=== PATIENT | male | born 1985 | race Caucasian/White ===

== ENCOUNTER 2017-09-02 22:00 | Emergency (ER) | payer SELFPAY ==
--- OUTSIDE RECORDS SUMMARY | 2017-09-02 22:28 | XMS REPORT ---
:1985 External Reference #:[id number] Author Organization [facility] Address [address] [address] Phone [phone] Care Team Providers Name Role Phone Celine Ha Primary Care Physician Unavailable Payers Type Date Identification Numbers Payment Provider Subscriber Commercial Effective: Policy Number: [facility] Kennedy Danielle 2015 [id number] [place] Group Name: [id number] [address] PayID: [id number] [place] [address] Workers Onset: 2016 Policy Number: State Insurance Christopher Compensation [id number] [facility] Group Number: [id number] [address] [address] Group Name: [id number] [place] [address] PayID: [id number] Commercial Expires: 2013 Policy Number: [place]/JUSTICE [facility] Kennedy Danielle [id number] Gen/Prefcar Group Number: [id number] OA PLUS [address] Group Name: [id number] [place] [address] PayID: [id number] Commercial Effective: Policy Number: [facility] Kennedy Lolis 2011 [id number] Trad/MX Expires: 2012 Group Number: BLUE EPO [address] [address] Group Name: [address] [place] [address] PayID: [id number] Commercial Expires: 2010 Policy Number: [facility] Kennedy Danielle [id number] Group Number: [place] [address] Group Name: [place] [address] PayID: [id number] Medigap Part B Expires: Policy Number: [facility] [place] 2009 [id number] [place] Group Number: [facility] [address] Group Name: [place] [address] PayID: [id number] Medigap Part B Expires: 2007 Policy Number: [employer] (Old) Stephan Danielle [id number] Group Name: [id number] [address] PayID: [id number] [place] [address] Workers Expires: Policy Number: Robert Benavides Compensation [id number] [address] Problems Date Description Provider Status Onset: 09/19/2011 Chest pain Celine Ha, PB Active Onset: 09/19/2011 Obesity Andre Rivers MD Active Family History Date Family Member(s) Problem(s) Comments Father Hypertension Mother Asthma Mother Hypothyroidism Social History Type Date Description Comments Marital Status Lives With Spouse Lives With Sons 2, as 06/27 ages 3 and 18 months Cigarette Use Former Cigarette Smoker 1-5 ONLY SMOKE 2 YRS Cigarettes Daily ETOH Use Drinks Alcoholic Beverages Rarely Smoking Patient is a former smoker Allergies, Adverse Reactions, Alerts Date Description Reaction Status Severity Comments 09/19/2011 NKDA active Medications Medication Date Status Form Strength Qnty SIG Indications Ordering Provider Cpap Active 1units cpap 9 cm Celine Dye h2o mask, [place], tubing and ANP filters dx: lashon g47.33 No OTC Meds Active Kelly Le 012 [place], [employer] Meloxicam Hx Tablets 15mg 30tabs one tab Kraig 017 - daily. take Eden, with food [employer] 017 Aldara Hx Cream 5% 1units apply to Celine Keating - affected [place], area on ANP 016 scotum overnight three times weekly for maximum of 16 weeks Tessalon Hx Capsules 200mg 21caps 1 po q8 prn Celine Keating - [place], ANP 013 Azithromycin Hx Tablets 250mg 6tabs 2 today, Celine Keating - then 1 qd x [place], 4 days ANP 013 Vital Signs Date Vital Result Comment 08/06/2017 BP Systolic 132 mmHg BP Diastolic 78 mmHg Heart Rate 88 /min Height 72.50 inches 6'0.50" Weight 443.00 lb O2 % BldC Oximetry 96 % RM Air BMI (Body Mass Index) 59.2 kg/m2 06/10/2017 BP Systolic 136 mmHg BP Diastolic 74 mmHg Heart Rate 88 /min Height 72.50 inches 6'0.50" Weight 443.00 lb O2 % BldC Oximetry 97 % BMI (Body Mass Index) 59.2 kg/m2 03/13/2017 BP Systolic 110 mmHg BP Diastolic 64 mmHg Heart Rate 92 /min Height 72.50 inches 6'0.50" Weight 450.00 lb O2 % BldC Oximetry 98 % BMI (Body Mass Index) 60.2 kg/m2 12/17/2016 BP Systolic 138 mmHg BP Diastolic 88 mmHg Heart Rate 95 /min Height 72.50 inches 6'0.50" Weight 442.00 lb O2 % BldC Oximetry 98 % RM Air BMI (Body Mass Index) 59.1 kg/m2 03/27/2016 BP Systolic 138 mmHg BP Diastolic 86 mmHg Heart Rate 102 /min Height 72.50 inches 6'0.50" Weight 450.50 lb O2 % BldC Oximetry 94 % RM Air BMI (Body Mass Index) 60.3 kg/m2 02/19/2016 BP Systolic 130 mmHg BP Diastolic 80 mmHg Heart Rate 82 /min Height 72.50 inches 6'0.50" Weight 444.38 lb O2 % BldC Oximetry 96 % RM Air BMI (Body Mass Index) 59.4 kg/m2 11/22/2015 BP Systolic 114 mmHg BP Diastolic 78 mmHg Heart Rate 98 /min Height 72.50 inches 6'0.50" Weight 444.00 lb O2 % BldC Oximetry 99 % BMI (Body Mass Index) 59.4 kg/m2 09/28/2015 BP Systolic 146 mmHg BP Diastolic 72 mmHg Heart Rate 88 /min Height 72.50 inches 6'0.50" Weight 449.00 lb O2 % BldC Oximetry 97 % BMI (Body Mass Index) 60.1 kg/m2 07/09/2012 BP Systolic 130 mmHg BP Diastolic 80 mmHg Height 72.50 inches 6'0.50" Weight 387.00 lb BMI (Body Mass Index) 51.8 kg/m2 02/13/2012 BP Systolic 120 mmHg BP Diastolic 80 mmHg Heart Rate 81 /min Body Temperature 96.8 F Height 72.50 inches 6'0.50" Weight 377.00 lb O2 % BldC Oximetry 97 % BMI (Body Mass Index) 50.4 kg/m2 01/31/2012 Weight 379.00 lb 11/27/2011 Weight 376.00 lb 10/25/2011 BP Systolic 130 mmHg BP Diastolic 70 mmHg Height 72.50 inches 6'0.50" Weight 383.00 lb BMI (Body Mass Index) 51.2 kg/m2 09/19/2011 BP Systolic 130 mmHg BP Diastolic 80 mmHg Heart Rate 83 /min Height 72.50 inches 6'0.50" Weight 391.00 lb O2 % BldC Oximetry 97 % BMI (Body Mass Index) 52.3 kg/m2 Results Test Date Test Result H/L Range Note Comprehensive Chem Profile 03/13/2017 Serum Glucose 97 mg/dL 74-99 1 BUN 15 mg/dL 7-18 Creatinine 0.8 mg/dL 0.6-1.3 Sodium 139 mEq/L 136-145 Potassium 4.2 mEq/L 3.5-5.1 Chloride 104 mEq/L 98-107 Carbon Dioxide 28 mEq/L 21-32 Calcium 8.8 mg/dL 8.5-10.1 Alk. Phosphatase 93 mg/dL 46-116 Total Bilirubin 0.3 mg/dL 0.2-1.0 Ast (Sgot) 14 U/L Low 15-37 Alt (SGPT) 26 U/L 12-78 Albumin 3.4 g/dL 3.4-5.0 Total Protein 7.1 g/dL 6.4-8.2 A/G Ratio 0.9 CALC Low 1.0-1.9 GFR >60 mL/min >=60 GFR >60 mL/min >=60 2 Complete Blood Count 03/13/2017 WBC 12.5 x10^3/UL High 4.1-10.9 RBC 5.23 x10^6/UL 4.20-6.30 HGB 14.6 g/dL 12.0-18.0 HCT 42.8 % 37.0-51.0 MCV 81.7 fL 80.0-97.0 MCH 27.9 pg 26.0-32.0 MCHC 34.1 g/dL 31.0-38.0 RDW 13.1 % 11.6-13.7 PLT 299 x10^3/UL 140-440 MPV 8.1 FL 7.8-11.0 Lymph % 24.0 % 10.0-58.5 Mid% 6.7 % 1.7-9.3 Neut % 69.3 % 37.0-92.0 Lymph# 3.0 x10^3/UL 0.6-4.1 Mid# 0.9 x10^3/UL High 0.1-0.6 Neut # 8.6 x10^3/UL High 2.0-7.8 Lipid Profile 03/13/2017 Cholesterol 154 mg/dL 131-200 Triglycerides 55 mg/dL 30-150 HDL Cholesterol 41 mg/dL 35-60 LDL (Calculated) 102 CALC 50-159 Complete Blood Count 09/28/2015 WBC 11.3 x10^3/UL High 4.1-10.9 RBC 5.33 x10^6/UL 4.20-6.30 HGB 14.9 g/dL 12.0-18.0 HCT 44.8 % 37.0-51.0 MCV 84.1 fL 80.0-97.0 MCH 27.9 pg 26.0-32.0 MCHC 33.2 g/dL 31.0-38.0 RDW 13.3 % 11.6-13.7 PLT 286 x10^3/UL 140-440 MPV 8.0 FL 7.8-11.0 Lymph % 25.6 % 10.0-58.5 Mid% 7.5 % 1.7-9.3 Neut % 66.9 % 37.0-92.0 Lymph# 2.9 x10^3/UL 0.6-4.1 Mid# 0.8 x10^3/UL High 0.1-0.6 Neut # 7.6 x10^3/UL 2.0-7.8 Comprehensive Chem Profile 09/28/2015 Serum Glucose 92 mg/dL 74-106 BUN 14 mg/dL 7-18 Creatinine 0.8 mg/dL 0.6-1.3 Sodium 143 mEq/L 136-145 Potassium 4.1 mEq/L 3.5-5.1 Chloride 104 mEq/L 98-107 Carbon Dioxide 29 mEq/L 21-32 Calcium 8.8 mg/dL 8.5-10.1 Alk. Phosphatase 80 mg/dL 46-116 Total Bilirubin 0.8 mg/dL 0.2-1.0 Ast (Sgot) 23 U/L 15-37 Alt (SGPT) 40 U/L 12-78 Albumin 3.5 g/dL 3.4-5.0 Total Protein 7.2 g/dL 6.4-8.2 A/G Ratio 0.9 CALC Low 1.0-1.9 GFR >60 mL/min >=60 GFR >60 mL/min >=60 3 Lipid Profile 09/28/2015 Cholesterol 145 mg/dL 131-200 Triglycerides 64 mg/dL 30-150 HDL Cholesterol 42 mg/dL 35-60 LDL (Calculated) 90 CALC 50-159 TSH 09/28/2015 TSH 2.45 mIU/mL 0.36-3.74 Comprehensive Chem Profile 10/25/2011 Serum Glucose 89 mg/dL 74-106 BUN 17 mg/dL 7-18 Creatinine 0.8 mg/dL 0.6-1.3 Sodium 137 mEq/L 136-145 Potassium 4.3 mEq/L 3.5-5.1 Chloride 101 mEq/L 98-107 Carbon Dioxide 30 mEq/L 21-32 BUN/Creat Ratio 21.3 CALC Calcium 9.0 mg/dL 8.5-10.1 Total Protein 7.4 g/dL 6.4-8.2 Albumin 4.0 g/dL 3.4-5.0 A/G Ratio 1.2 CALC Globulin 3.4 CALC Ast (Sgot) 18 U/L 15-37 Alt (SGPT) 47 U/L 30-65 Alk. Phosphatase 101 mg/dL 50-136 Total Bilirubin 0.8 mg/dL 0.0-1.0 GFR >60 mL/min >=60 GFR >60 mL/min >=60 4 Lipid Profile 10/25/2011 Cholesterol 168 mg/dL 131-200 Triglycerides 65 mg/dL 30-150 HDL Cholesterol 37 mg/dL 35-60 LDL (Calculated) 118 CALC 50-159 TSH 10/25/2011 TSH 1.50 mIU/mL 0.34-4.82 1 * 100-125 mg/dl Pre-Diabetes/Fasting >126 mg/dl Diabetes/Fasting 2 CHRONIC KIDNEY DISEASE STAGING PER NKF STAGE I & II GFR>=60 NORMAL TO MILDLY DECREASED STAGE III GFR 30-59 MODERATELY DECREASED STAGE IV GFR 15-29 SEVERELY DECREASED STAGE V GFR <15 VERY LITTLE GFR LEFT ESRD GFR <15 ON CONDITIONER TUMBLER 3 CHRONIC KIDNEY DISEASE STAGING PER NKF STAGE I & II GFR>=60 NORMAL TO MILDLY DECREASED STAGE III GFR 30-59 MODERATELY DECREASED STAGE IV GFR 15-29 SEVERELY DECREASED STAGE V GFR <15 VERY LITTLE GFR LEFT ESRD GFR <15 ON CONDITIONER TUMBLER 4 * CHRONIC KIDNEY DISEASE STAGING PER NKF Procedures Date CPT Code Description Status 06/01/2009 28420 EKG/Interpretation & Report Completed 06/09/2006 20541 EKG/Interpretation & Report Completed Encounters Type Date Location Provider CPT E/M Dx Office Visit 06/10/2017 11:15a [place] [address] G47.33 E66.01 Z68.43 Office Visit 03/13/2017 11:15a [place] 13701 E66.01 Z68.44 R53.83 I10 Office Visit 12/17/2016 10:40a Silvestre Ferris Kraig Harmon, [facility] 27524 M25.531 S69.91xA Y04.2xxA Y92.149 Y99.0 Office Visit 03/27/2016 10:40a Silvestre Ferris Kraig Harmon, [facility] 60814 M25.531 M25.531 Office Visit 02/19/2016 11:00a [place] Kraig Harmon, [facility] [address] M25.531 M25.531 Office Visit 11/22/2015 1:45p [place] [address] M25.561 I10 E66.01 Z68.43 Office Visit 09/28/2015 11:15[place] [address] D48.5 M25.561 I10 E66.01 Z68.43 Office Visit 07/09/2012 11:45a Silvestre Tejeda, [facility] 23813 078.11 Office Visit 02/13/2012 11:00a [place] 03005 465.9 Office Visit 10/25/2011 1:00p Silvestre Tejeda, [facility] 51481 278.01 V85.43 272.5 Office Visit 09/19/2011 11:45a Silvestre Mendoza Sherie Ac, [employer] [address]80 786.50 278.00 278.01 V85.43 Office Visit 06/01/2009 2:30p PB Oliveira 40369 786.50 Office Visit 06/09/2006 10:30[place] [address] 786.50 272.5 278.00 Plan of Care Future Appointment(s):02/12/2018 8:30 am - PB Taylor at Silvestre Ferris08/06/2017 - PB TaylorG47.33 Obstructive sleep apnea (adult ) (pediatric)E66.01 Morbid (severe) obesity due to excess shtirjxgD27.43 Body mass index (BMI) 50-59.9 , adultAllComments:6 month follow up and prn.
--- OUTSIDE RECORDS SUMMARY | 2017-09-02 22:28 | XMS REPORT ---
:1985 External Reference #:[id number] Author Organization [facility], Address [address] [address] Phone [phone] Care Team Providers Name Role Phone Andre Rivers MD Primary Care Physician Unavailable Payers Type Date Identification Payment Subscriber Numbers Provider Workers Compensation Onset: Policy Number: [facility] Kennedy Madsen 01/17/2016 [id number] () [place] Group Number: [id number] [address] [address] PayID: [place] [address] Commercial Onset: 12/12/2007 Policy Number: [employer] (ga) Kennedy Danielle [id number] Group Number: [id number] [address] PayID: [id number] [place] [address] Problems Date Description Provider Status Onset: 09/19/2011 Chest pain Celine Ha, Rncanp Active Onset: 09/19/2011 Obesity Andre Rivers MD Active Family History Date Family Member(s) Problem(s) Comments Father Non Contributory Mother Non Contributory Social History Type Date Description Comments ETOH Use Denies alcohol use Smoking Patient is a former smoker Allergies, Adverse Reactions, Alerts Date Description Reaction Status Severity Comments 01/10/2017 NKDA active Medications Medication Date Status Form Strength Qnty SIG Indications Ordering Provider No Active 01/10/2017 Active Unknown Medications Vital Signs Date Vital Result Comment 01/10/2017 Body Temperature 97.3 F Height 73 inches 6'1" Weight 435.00 lb plus scale turned off BMI (Body Mass Index) 57.4 kg/m2 12/17/2016 Height 72.50 inches Weight 442.00 lb BMI (Body Mass Index) 59.1 kg/m2 Results Description No Information Procedures Date CPT Code Description Status 03/26/2017 02149 Manual Therapy Each 15 Minutes Completed 03/26/2017 37359 Therapeutic Procedure, Each 15 Minutes Completed 03/26/2017 34214 Therapeutic Procedure, Each 15 Minutes Completed 03/26/2017 41963 Ultrasound, Each 15 Min, Constant Attendance Completed 03/24/2017 34879 Manual Therapy Each 15 Minutes Completed 03/24/2017 71311 Therapeutic Procedure, Each 15 Minutes Completed 03/24/2017 43035 Therapeutic Procedure, Each 15 Minutes Completed 03/24/2017 84290 Ultrasound, Each 15 Min, Constant Attendance Completed 03/19/2017 52854 Ultrasound, Each 15 Min, Constant Attendance Completed 03/19/2017 79896 Therapeutic Procedure, Each 15 Minutes Completed 03/19/2017 46719 Therapeutic Procedure, Each 15 Minutes Completed 03/19/2017 28754 Manual Therapy Each 15 Minutes Completed 03/17/2017 49900 Manual Therapy Each 15 Minutes Completed 03/17/2017 66283 Therapeutic Procedure, Each 15 Minutes Completed 03/17/2017 98296 Therapeutic Procedure, Each 15 Minutes Completed 03/17/2017 63742 Ultrasound, Each 15 Min, Constant Attendance Completed 03/14/2017 32989 Manual Therapy Each 15 Minutes Completed 03/14/2017 10860 Therapeutic Procedure, Each 15 Minutes Completed 03/14/2017 77334 Ultrasound, Each 15 Min, Constant Attendance Completed 03/11/2017 68200 Ultrasound, Each 15 Min, Constant Attendance Completed 03/11/2017 57757 Therapeutic Procedure, Each 15 Minutes Completed 03/11/2017 01226 Therapeutic Procedure, Each 15 Minutes Completed 03/11/2017 23318 Manual Therapy Each 15 Minutes Completed 03/07/2017 02131 Manual Therapy Each 15 Minutes Completed 03/07/2017 44562 Therapeutic Procedure, Each 15 Minutes Completed 03/07/2017 78089 Therapeutic Procedure, Each 15 Minutes Completed 03/07/2017 33541 Ultrasound, Each 15 Min, Constant Attendance Completed 03/04/2017 52590 Manual Therapy Each 15 Minutes Completed 03/04/2017 34796 Therapeutic Procedure, Each 15 Minutes Completed 03/04/2017 29521 Therapeutic Procedure, Each 15 Minutes Completed 03/04/2017 27274 Ultrasound, Each 15 Min, Constant Attendance Completed 02/28/2017 45811 Ultrasound, Each 15 Min, Constant Attendance Completed 02/28/2017 44825 Therapeutic Procedure, Each 15 Minutes Completed 02/28/2017 45908 Therapeutic Procedure, Each 15 Minutes Completed 02/28/2017 30557 Massage, Each 15 Minutes Completed 02/25/2017 19813 Manual Therapy Each 15 Minutes Completed 02/25/2017 23635 Therapeutic Procedure, Each 15 Minutes Completed 02/25/2017 68134 Therapeutic Procedure, Each 15 Minutes Completed 02/25/2017 81588 Ultrasound, Each 15 Min, Constant Attendance Completed 02/21/2017 87459 Ultrasound, Each 15 Min, Constant Attendance Completed 02/21/2017 77005 Physical Therapy Evaluation Completed 01/10/2017 66539 X-Ray Wrist Complete Completed Encounters Type Date Location Provider CPT E/M Dx Office Visit 08/07/2017 1:15p Candace Khan PA-C 57317 M67.441 Office Visit 04/10/2017 8:30a Candace Khan PA-C 09145 M65.4 M18.11 Office Visit 01/10/2017 10:30[place] [address] M65.4 Office Visit 05/31/2008 2:30p HAZEL Graham [address]8866 845.00 Plan of Care No Information Available
--- NOTE | 2017-09-03 01:12 | ED ---
Upper Extremity Pain - HPI Summary HPI Summary: 31-year-old male presents with left wrist pain for the past day. He states he went to grab doorknob and extended it ulnar aspect. He denies any numbness or tingling. He denies any elbow pain. He denies any previous injury to the area. pain is worst with wrist deviation. he admits to weakness of the joint. He is right-handed. - History of Current Complaint Chief Complaint: EDExtremityUpper Stated Complaint: LT WRIST INJURY Time Seen by Provider: 09/03/17 00:47 - Allergies/Home Medications Allergies/Adverse Reactions: Allergies Allergy/AdvReac Type Severity Reaction Status Date / Time No Known Allergies Allergy Verified 09/02/17 22:09 PMH/Surg Hx/FS Hx/Imm Hx Endocrine/Hematology History: Denies: Hx Anticoagulant Therapy Cardiovascular History: Denies: Hx Myocardial Infarction Infectious Disease History: No Infectious Disease History: Denies: Traveled Outside the [place] in Last 30 Days - Family History Known Family History: Positive: Hypertension - Social History Alcohol Use: Occasionally Substance Use Type: Reports: None Review of Systems Negative: Fever Negative: Chest Pain Negative: Shortness Of Breath Positive: Myalgia - left wrist pain All Other Systems Reviewed And Are Negative: Yes Physical Exam Triage Information Reviewed: Yes Vital Signs On Initial Exam: Initial Vitals Temp Pulse Resp BP Pulse Ox 98.4 F 81 16 153/89 96 09/02/17 22:09 09/02/17 22:09 09/02/17 22:09 09/02/17 22:09 09/02/17 22:09 Vital Signs Reviewed: Yes Appearance: Positive: Well-Appearing Skin: Positive: Warm, Dry Head/Face: Positive: Normal Head/Face Inspection Eyes: Positive: Normal, Conjunctiva Clear Respiratory/Lung Sounds: Positive: Clear to Auscultation, Breath Sounds Present Cardiovascular: Positive: Normal, RRR Musculoskeletal: Positive: Strength/ROM Intact - left wrist, Other - pos finklestein test, good pulses, nontender wrist palpation Neurological: Positive: Normal Psychiatric: Positive: Normal Diagnostics - Vital Signs Vital Signs Temp Pulse Resp BP Pulse Ox 09/02/17 22:09 98.4 F 81 16 153/89 96 - Laboratory Lab Statement: Any lab studies that have been ordered have been reviewed, and results considered in the medical decision making process. Course/Dx - Course Course Of Treatment: 31-year-old male presents with left wrist pain for the past day. He states he went to grab doorknob and extended it ulnar aspect. He denies any numbness or tingling. He denies any elbow pain. He denies any previous injury to the area. pain is worst with wrist deviation. he admits to weakness of the joint. He is right-handed. On exam positive Ivy test. Neurovascular intact. Placed in thumb spica. We'll have follow-up with primary. Patient understands agrees with plan. - Diagnoses Differential Diagnosis/HQI/PQRI: Positive: Fracture (Closed), Strain, Sprain Provider Diagnoses: Left wrist pain Discharge - Sign-Out/Discharge Documenting (check all that apply): Patient Departure - Discharge Plan Condition: Good Disposition: HOME Patient Education Materials: De Quervain Disease (ED) Forms: *Work Release Referrals: Kisha Burroughs MD [Medical Doctor] - No Primary Care Phys,NOPCP [Primary Care Provider] - Additional Instructions: Take Tylenol or ibuprofen every 6 hours as needed for pain Apply ice, rest, elevate use splint on area Follow up with ortho if no improvement Return to ED if develop any new or worsening symptoms - Billing Disposition and Condition Condition: GOOD Disposition: Home
[2017-09-03 04:04] VITALS: BP 0/0
== END 2017-09-03 02:30 | disposition home or self-care (01) ==
LOC: ED 22:00
DX: M25.532 Pain in left wrist (principal)
CPT/HCPCS: 99281